=== PATIENT | male | born 1965 | race Caucasian/White ===

== ENCOUNTER 2016-05-11 23:20 | Emergency (ER) | payer SELFPAY ==
[2016-05-12 01:25] LABS: Basophils % (Auto) 0.5 % (0.0-1.8); Eosinophils % (Auto) 2.4 % (0.0-4.3); Hematocrit 45.5 % (35.5-45.6); Hemoglobin 15.4 gm/dl (11.8-15.2); Mean Corpuscular HGB Conc 34 % (32-34); Mean Corpuscular Hemoglobin 30 pg (28-32); Mean Corpuscular Volume 87 fl (84-94); Platelet Count 269 K/mm3 (140-440); Red Blood Count 5.22 M/mm3 (3.65-5.03); Red Cell Distribution Width 12.9 % (13.2-15.2); White Blood Count 7.1 K/mm3 (4.5-11.0)
[2016-05-12 01:35] LABS: INR 0.99 (0.87-1.13)
[2016-05-12 01:43] LABS: Anion Gap 17 mmol/L; Blood Urea Nitrogen 13 mg/dL (9-20); Carbon Dioxide 26 mmol/L (22-30); Chloride 94.3 mmol/L (98-107); Glucose 193 mg/dL (75-100); Potassium 3.7 mmol/L (3.6-5.0); Sodium 134 mmol/L (137-145)
--- NOTE | 2016-05-12 05:44 | Cat Scan Report ---
FINAL REPORT PROCEDURE: CT HEAD/BRAIN WO CON TECHNIQUE: Computerized tomography of the head was performed without contrast material. HISTORY: RT FACIAL DROOP SLURRED SPEACH COMPARISON: No prior studies are available for comparison. FINDINGS: Skull and scalp: Normal. Paranasal sinuses: Normal. Ventricles and subarachnoid spaces: Normal. Cerebrum: No evidence of hemorrhage, acute infarction or mass . Cerebellum and brainstem: No evidence of hemorrhage, acute infarction or mass. Vasculature: Normal. Comments: None. IMPRESSION: Normal Examination
[2016-05-12 06:28] VITALS: BP 137/91
--- NOTE | 2016-05-12 06:34 | Emergency Department Report ---
HPI - General Chief Complaint: Neuro Symptoms/Deficit Time Seen by Provider: 05/12/16 06:14 - HPI HPI: Chief complaint: Right facial droop HPI: Patient is a 51-year-old male who states that yesterday he developed a right facial droop. Patient denies a headache. Patient is unable to close his right eye. Patient has no previous history of Corral's palsy and has no previous medical history. Patient has no other neurologic deficits. Mode of arrival: [private car] Source: [Patient] Began: Yesterday morning Duration: Continuous Context: See above Quality: Pain-free Severity: 0 out of 10 Improved with: Nothing Worsened with: Nothing Associated signs and symptoms: Right eye tearing ED Past Medical Hx - Past Medical History Previous Medical History?: No - Surgical History Past Surgical History?: No - Social History Smoking Status: Never Smoker Substance Use Type: None - Medications Home Medications: Home Medications Medication Instructions Recorded Confirmed Last Taken Type Acyclovir [Zovirax Tab] 400 mg PO 5XD #50 tablet 05/12/16 Unknown Rx predniSONE [Deltasone] 10 mg PO QDAY #40 tablet 05/12/16 Unknown Rx ED Review of Systems ROS: Stated complaint: TWISTED MOUTH Other details as noted in HPI ROS Constitutional: No fever ENT: No uri symptoms Cardiovascular: No chest pain Respiratory: No sob or cough GI: No nausea vomiting or diarrhea : No dysuria frequency or urgency, Skin: No rash Neuro: See HPI Psych: No depression Manpreet/lymph: No edema Physical Exam - Physical Exam Vital Signs: Vital Signs 05/12/16 05/12/16 05/12/16 00:28 03:49 04:00 Temperature 97.7 F Pulse Rate 115 H 91 H 86 Respiratory 18 14 13 Rate Blood Pressure 145/107 128/77 O2 Sat by Pulse 98 Oximetry 05/12/16 05/12/16 04:30 04:38 Temperature Pulse Rate 82 Respiratory 12 18 Rate Blood Pressure 117/75 O2 Sat by Pulse 95 99 Oximetry Physical Exam: GENERAL: The patient is well-developed well-nourished . HEENT: Normocephalic. Atraumatic. Extraocular motions are intact. Patient has moist mucous membranes. NECK: Supple. No meningitic signs are noted. There is no adenopathy noted. CHEST/LUNGS: Clear to auscultation. There is no respiratory distress noted. HEART/CARDIOVASCULAR: Regular. There is no tachycardia. There is no gallop rub or murmur. ABDOMEN: Abdomen is soft, nontender. Patient has normal bowel sounds. There is no abdominal distention. SKIN: There is no rash. There is no edema. There is no diaphoresis. NEURO: The patient is awake, alert, and oriented. The patient is cooperative. Patient has a facial nerve palsy on the right. The patient has no other focal neurologic deficits. The patient has normal speech. MUSCULOSKELETAL: There is no tenderness or deformity. There is no limitation range of motion. There is no evidence of acute injury. ED Course Vital Signs 05/12/16 05/12/16 05/12/16 00:28 03:49 04:00 Temperature 97.7 F Pulse Rate 115 H 91 H 86 Respiratory 18 14 13 Rate Blood Pressure 145/107 128/77 O2 Sat by Pulse 98 Oximetry 05/12/16 05/12/16 04:30 04:38 Temperature Pulse Rate 82 Respiratory 12 18 Rate Blood Pressure 117/75 O2 Sat by Pulse 95 99 Oximetry ED Medical Decision Making - Lab Data Result diagrams: 05/12/16 00:51 05/12/16 00:51 - Radiology Data Radiology results: report reviewed (CT scan shows no acute process.) Critical care attestation.: If time is entered above; I have spent that time in minutes in the direct care of this critically ill patient, excluding procedure time. ED Disposition Clinical Impression: Corral's palsy Disposition: DISCHARGED TO HOME OR SELFCARE Is pt being admited?: No Does the pt Need Aspirin: No Condition: Stable Instructions: Corral Palsy (ED) Additional Instructions: Get an [id number] lubricant to use in your eye at night or in the daytime if artificial tears do not keep your eye moist during the day. Use artificial tears liberally throughout the day to keep your moist. Prescriptions: Acyclovir [Zovirax Tab] 400 mg PO 5XD #50 tablet predniSONE [Deltasone] 10 mg PO QDAY #40 tablet Referrals: PRIMARY MD JINNY [Primary Care Provider] - 3-5 Days FLETCHER CAMARA MD [Staff Physician] - 3-5 Days (Dr. Camara is a primary care doctor you can follow-up with.) [facility] [Provider Group] - 3-5 Days Time of Disposition: 06:37
== END 2016-05-12 06:52 | disposition home or self-care (01) ==
LOC: ED 23:20
DX: G51.0 Bell's palsy (principal)
CPT/HCPCS: 36415; 70450; 80048; 84484; 85025; 85610; 85670; 85730; 93005; 93010